=== PATIENT | female | born 1985 | race African-American/Black ===

== ENCOUNTER → 2021-04-25 15:46 | Outpatient (CLI) | payer OTHER, SELFPAY ==
--- NOTE | ~2021-04-25 | US_ITS ---
EXAMINATION: US thyroid DATE: 04/25/2021 16:06 INDICATION: Disorder of thyroid, unspecified. TECHNIQUE: Multiple ultrasound images of the thyroid were obtained. COMPARISON: None. FINDINGS: The right thyroid lobe measures 4.8 x 1.2 x 1.5 cm. The left thyroid lobe measures 4.2 x 1.2 x 1.5 c m. There is normal echotexture and echogenicity throughout the thyroid gland. No discrete nodules id entified. Normal vascular flow is present. IMPRESSION: 1. Normal thyroid. Reviewed, dictated and finalized at location A. IMPRESSION: 1. Normal thyroid.
== END ==
PROVIDERS: PCP Internal Medicine; Visit Provider Internal Medicine
DX: E07.9 Disorder of thyroid, unspecified (principal)
CPT/HCPCS: 76536

== ENCOUNTER 2025-06-02 10:38 | Emergency (ER) | payer OTHER, SELFPAY ==
[2025-06-02 10:49] VITALS: BP 100/72; PULSE 88; RESP 16; TEMP 36.9; O2SAT 100
--- NOTE | 2025-06-02 10:54 | ED_ITS ---
HPI - Female Genitourinary General Chief complaint: Urogenital-Female Stated complaint: UTI SYMPTOMS Time Seen by Provider: 06/02/25 10:55 Source: patient Mode of arrival: ambulatory Limitations: no limitations History of Present Illness HPI Narrative: Capo is a 39-year-old female patient presenting to the clinic today with complaints of possible UTI x1 week. She reports she is having increasing urination, difficulty holding her urine, and bladder pain for the past week. Has not taken any medications for her symptoms. Denies any fevers, chills, back pain, or abdominal pain. Last menstrual period was last month. She denies any concern for . Denies any vaginal discharge or odor. Denies any concern for STIs. Related Data Allergies Allergy/AdvReac Type Severity Reaction Status Date / Time No Known Allergies Allergy Verified 06/02/25 10:49 Review of Systems Review of Systems: Pertinent positives per HPI. Patient denies any fever, chills, rash, headache, visual changes, dizziness, cough, runny nose, sore throat, shortness of breath, chest pain, palpitations, nausea, vomiting, diarrhea, constipation, abdominal pain PMFSH Past Medical History Medical History Asthma Allergies Family History Family History Mother Breast cancer Sibling Asthma Diabetes mellitus Grandparent Hypertension Depression Heart disease Social History Social History Smoking status: Never smoker Alcohol intake: current Substance use: never Do You Feel Safe in your Home?: Yes Lack of Transportation: No Lack of Food: Never True Current Housing: I Have Housing Concerned About Future Housing: No Difficulty Paying Gas/Electric Bills: No Difficulty Paying for Meds: No Currently Unemployed: No Education: Master's Degree or Higher Difficulty w/ Childcare or Family Care: No Comments At the time of my signature, I reviewed and agree with the nursing past medical, surgical, social, and family history. There is no relevant family history pertinent to the patient complaint. Exam Narrative: General: Well-developed, well nourished, in no apparent distress. Head: Normocephalic, atraumatic. Cardio: Regular rate and rhythm, s1 and s2 normal, no murmur appreciated. Resp: Clear to auscultation bilaterally, no rhonchi, rales, wheezing or rubs. Abdomen: Soft, pliable, bowel sounds present in all quadrants, suprapubic tender to palpation, no organomegly, no CVAT tenderness. Course Course Emergency Course: Portions of this record may have been created with voice recognition software. Level of Care: Express Care Visit Vital Signs Vital signs: Vital Signs Temperature 36.9 C 06/02/25 10:49 Pulse Rate 88 06/02/25 10:49 Respiratory Rate 16 06/02/25 10:49 Blood Pressure 100/72 06/02/25 10:49 Pulse Oximetry 100 06/02/25 10:49 Temperature 36.9 C 06/02/25 10:49 Pulse Rate 88 06/02/25 10:49 Respiratory Rate 16 06/02/25 10:49 Blood Pressure 100/72 06/02/25 10:49 Pulse Oximetry 100 06/02/25 10:49 Vital signs reviewed MDM - Female Genitourinary MDM Narrative Medical decision making narrative: At the time of visit patient is resting comfortably on the exam table. Patient appears to be nontoxic. complaints of possible UTI x1 week. She reports she is having increasing urination, difficulty holding her urine, and bladder pain for the past week. Has not taken any medications for her symptoms. Denies any fevers, chills, back pain, or abdominal pain. Last menstrual period was last month. She denies any concern for . Denies any vaginal discharge or odor. Denies any concern for STIs. On exam patient has normal bowel sounds, soft and pliable abdomen with mild tenderness to palpation over the suprapubic area, no CVAT tenderness. UA dip ordered. Labs: Urinalysis dip performed and was negative for any sign of blood, protein, or leukocytes. We will send urine for culture. Plan: I suspect patient has urinary frequency, urgency, and bladder pain. Will send urine for culture. Prescription for Pyridium was sent to the pharmacy. Supportive measures were discussed with the patient and they voiced understanding discharge instructions and agrees to treatment plan. Return precautions reviewed Differential Diagnosis Differential diagnosis: Likely urinary tract infection, bacterial vaginosis, trichomoniasis, cervicitis, ovarian cyst, vaginitis and cystitis Discharge Plan Discharge Clinical Impression: Bladder pain, Urinary frequency, Urinary urgency Patient Disposition: Home Condition: Stable Instructions: Antibiotic Form, Pelvic Pain in Women (ED), Urinary Urgency and Frequency (DC) Additional Instructions: Urine is negative for any sign of infection at this time. We will send urine for culture Bedside test was negative in the clinic today. May take Pyridium for your symptoms Increase fluids and stay well hydrated Wipe front to back. May use wet wipes. Avoid tub baths If sexually active- pee before and after intercourse. Wear cotton panties Avoid tight clothing up against the genitals Follow up with your PCP in 1 week if symptoms persist. Patient Language: Armenian Prescriptions: New phenazopyridine [Pyridium] 200 mg tablet 200 mg PO TID PRN (Reason: pain) Qty: 6 0RF Follow-up/Referrals: Richy,Mel [Other] Time of Disposition: 11:06 Quality NIHSS Nursing Documentation ED NIHSS nursing documentation: reviewed/agree
[2025-06-02 10:57] LABS: EDUAAPPEAR Clear; EDUABILI Negative (Negative); EDUABLOOD Negative (Negative); EDUACOLOR1 Yellow; EDUAGLUCOSE Negative (Negative); EDUAKETONE Negative (Negative); EDUALEUKO Negative (Negative); EDUANITRATE Negative (Negative); EDUAPH 7.0; EDUAPROTEIN Negative (Negative); EDUASPGRAVITY 1.020; EDUAUROBILI 0.2
[2025-06-02 11:10] LABS: BEDSIDEPREGUCG Negative (Negative)
== END 2025-06-02 11:28 | disposition home or self-care (01) ==
PROVIDERS: Emergency Provider Nurse Practitioner Family
DX: R39.89 Other symptoms and signs involving the genitourinary system (principal); R35.0 Frequency of micturition; R39.15 Urgency of urination; J45.909 Unspecified asthma, uncomplicated
CPT/HCPCS: 81003; 81025; 87086; 99213; G0463